=== PATIENT | female | born 1960 | race African-American/Black ===

== ENCOUNTER 2018-04-08 14:21 | Emergency (ER) | payer MEDICARE, MEDICAID ==
[~2018-04-08] VITALS: Ht 162.6 cm; Wt 70.0 kg
[2018-04-08] MEDS ORDERED: NAPR-679 PO (14:35)
[2018-04-08] MEDS ORDERED: DEXAMETHASONE 10 MG/ML VIAL IM ONE (16:15)
[2018-04-08 16:18] VITALS: BP 178/91
== END 2018-04-08 16:51 | disposition home or self-care (01) ==
LOC: ER 14:54
DX: T78.3XXA Angioneurotic edema, initial encounter (principal); F12.10 Cannabis abuse, uncomplicated; Z88.5 Allergy status to narcotic agent; Z88.0 Allergy status to penicillin; Y92.89 Other specified places as the place of occurrence of the external cause
CPT/HCPCS: 96372; 99283; J1100